=== PATIENT | male | born 1960 | race Caucasian/White ===

== ENCOUNTER 2023-07-08 05:35 | Emergency (ER) | payer MEDICARE, SELFPAY ==
[2023-07-08] VITALS (32 sets, daily range): BP systolic 123–192; BP diastolic 51–79; PULSE 70–92; RESP 4–39; TEMP 37.3–39.4; O2SAT 99–100
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
[2023-07-08] MEDS: ACETAMINOPHEN 500 MG TABLET 1000 MG PO (06:15)
[2023-07-08] MEDS: 0.9 % SODIUM CHLORIDE 1,000 ML 999 ML IV (06:16)
[2023-07-08 06:19] LABS: Hematocrit 30.4 % (42.0-54.0); Hemoglobin 9.6 g/dL (14.0-18.0); Mean Corpuscular HGB Conc 31.6 g/dL (29.9-35.2); Mean Corpuscular Hemoglobin 31.6 pg (25.9-34.0); Mean Platelet Volume 11.9 fL (9.5-13.5); Platelet Count 184 10^3/uL (150-450); Red Blood Count 3.04 10^6/uL (4.70-6.10); Red Cell Distribution Width 13.7 % (11.0-15.0); White Blood Count 20.8 10^3/uL (4.0-11.0)
[2023-07-08 06:29] LABS: Lactate/Lactic Acid 2.1 mmol/L (0.4-2.0)
[2023-07-08 06:33] LABS: Troponin I High Sensitivity 45.8 pg/mL (4.0-76.1)
[2023-07-08 06:42] LABS: Chloride 96 mmol/L (98-107); Sodium 132 mmol/L (136-145)
[2023-07-08 06:43] LABS: Alanine Aminotransferase 14 U/L (16-63); Alkaline Phosphatase 163 U/L (46-116); Anion Gap 18.5; Aspartate Amino Transferase 12 U/L (15-37); BUN Creatinine Ratio 13.7; Bilirubin Total 1.6 mg/dL (0.2-1.0); Calcium 8.5 mg/dL (8.5-10.1); Carbon Dioxide 20.4 mmol/L (21.0-32.0); Estimated GFR (African America 19 (>=60); Estimated GFR (Non-African Ame 16 (>=60); Glucose 192 mg/dL (74-106); Total Protein 7.3 g/dL (6.4-8.2)
[2023-07-08 06:44] LABS: Albumin Globulin Ratio 0.6; Albumin Level 2.7 g/dL (3.4-5.0); Globulin 4.6 g/dL; Potassium 2.9 mmol/L (3.5-5.1)
[2023-07-08 06:47] LABS: Influenza Virus A Antigen Negative; Influenza Virus B Antigen Negative; Internal Control Within Normal Limits; SARS-CoV-2 Ag NEGATIVE (NEGATIVE)
--- NOTE | 2023-07-08 06:47 | XR_ITS ---
[place] [id number] Patient Name: LEA RUSSO MRN: [id number] date: 1960 Sex: M Assigned Patient Location: ER Current Patient Location: ER Accession/Order Number: [id number] Exam Date: 07/08/2023 06:50 Report Date: 07/08/2023 07:10 At the request of: ERNESTO GARCIA Procedure: XR chest 1V EXAMINATION: XR chest 1V HISTORY: shortness of breath/chest pain COMPARISON: XR chest 03/25/2014 FINDINGS: LUNGS: No infiltrate, pneumothorax, or pleural effusion. MEDIASTINUM: No abnormal widening. BOWEL GAS PATTERN: Non-obstructed. FREE AIR: None. CALCIFICATIONS: None significant. BONES: No fracture or visible bone lesion. OTHER: Negative. XR/XR chest 1V IMPRESSION: 1. No acute cardiopulmonary process. Electronically authenticated by: JYOTI ELIZALDE Date: 07/08/2023 07:10
[2023-07-08 06:51] LABS: Lymphocytes Absolute Manual 0.62 10^3/uL (1.20-3.80); Monocytes Absolute Manual 1.24 10^3/uL (0.30-0.80); Segmented Neut Absolute Manual 17.68 10^3/uL (1.4-6.5)
[2023-07-08 06:55] LABS: PROCALCITONIN 2.97 ng/mL (0.00-0.50)
[2023-07-08 07:08] LABS: Bilirubin Direct 0.6 mg/dL (0.0-0.2)
[2023-07-08] MEDS: VANCOMYCIN HCL 1,500 MG in 0.9 % SODIUM CHLORIDE 500 ML 250 MG IV (07:23)
[2023-07-08] MEDS: POTASSIUM CHLORIDE 10 MEQ ER TABLET 40 MEQ PO (07:23)
[2023-07-08] MEDS: ERTAPENEM SODIUM 1 GM in 0.9 % SODIUM CHLORIDE 50 ML IV (07:41)
[2023-07-08] MEDS: POTASSIUM CHLORIDE IN 0.9%NACL 1,000 ML 200 MEQ IV (08:56)
[2023-07-08 09:11] LABS: Lactate/Lactic Acid 0.9 mmol/L (0.4-2.0)
[2023-07-08 19:28] LABS: Enterococcus faecalis NOT DETECTED (NOT DETECTE); Enterococcus faecium NOT DETECTED (NOT DETECTE); Listeria monocytogenes NOT DETECTED (NOT DETECTE); Staphylococcus epidermidis NOT DETECTED (NOT DETECTE); Staphylococcus lugdunensis NOT DETECTED (NOT DETECTE); Staphylococcus spp. NOT DETECTED (NOT DETECTE); Streptococcus agalactiae NOT DETECTED (NOT DETECTE); Streptococcus pneumoniae NOT DETECTED (NOT DETECTE); Streptococcus spp. NOT DETECTED (NOT DETECTE)
[2023-07-08 19:29] LABS: A. calcoaceticus-baumannii Cpx NOT DETECTED (NOT DETECTE); Bacteroides fragilis NOT DETECTED (NOT DETECTE); Candida albicans NOT DETECTED (NOT DETECTE); Candida auris NOT DETECTED (NOT DETECTE); Candida glabrata NOT DETECTED (NOT DETECTE); Candida krusei NOT DETECTED (NOT DETECTE); Candida parapsilosis NOT DETECTED (NOT DETECTE); Candida tropicalis NOT DETECTED (NOT DETECTE); Cryptococcus neoformans/gattii NOT DETECTED (NOT DETECTE); Enterobacter cloacae complex NOT DETECTED (NOT DETECTE); Enterobacterales NOT DETECTED (NOT DETECTE); Haemophilus influenzae NOT DETECTED (NOT DETECTE); Klebsiella aerogenes NOT DETECTED (NOT DETECTE); Klebsiella pneumoniae group NOT DETECTED (NOT DETECTE); Neisseria meningitidis NOT DETECTED (NOT DETECTE); Proteus spp. NOT DETECTED (NOT DETECTE); Pseudomonas aeruginosa NOT DETECTED (NOT DETECTE); Salmonella spp. NOT DETECTED (NOT DETECTE); Serratia marcescens NOT DETECTED (NOT DETECTE); Stenotrophomonas maltophilia NOT DETECTED (NOT DETECTE); Streptococcus pyogenes NOT DETECTED (NOT DETECTE)
[2023-07-09 11:27] LABS: Source BLOOD
== END 2023-07-08 10:28 | disposition short-term general hospital (02) ==
PROVIDERS: Emergency Provider Emergency Medicine; PCP Family Medicine
DX: A41.9 Sepsis, unspecified organism (principal); R65.20 Severe sepsis without septic shock; N17.9 Acute kidney failure, unspecified; L76.82 Other postprocedural complications of skin and subcutaneous tissue; L03.116 Cellulitis of left lower limb; N18.9 Chronic kidney disease, unspecified; R07.9 Chest pain, unspecified; I48.91 Unspecified atrial fibrillation; Z79.899 Other long term (current) drug therapy; Z79.01 Long term (current) use of anticoagulants; R50.9 Fever, unspecified; Z20.822 Contact with and (suspected) exposure to COVID-19
CPT/HCPCS: 36415; 71045; 80048; 80053; 82248; 83605; 83880; 84145; 84484; 85007; 85027; 87040; 87150; 87186; 87804; 87811; 93005; 96365; 96366; 96368; 96375; 99285; J1335; J3370

== ENCOUNTER 2023-12-27 13:01 | Outpatient (REF) | payer MEDICARE, SELFPAY ==
[2023-12-27 14:34] LABS: Hemoglobin 7.2 g/dL (14.0-18.0)
== END 2023-12-27 13:02 | disposition home or self-care (01) ==
LOC: LAB 13:01
PROVIDERS: PCP Family Medicine; Visit Provider Internal Medicine
DX: D64.9 Anemia, unspecified (principal)
CPT/HCPCS: 36415; 85018

== ENCOUNTER 2024-06-01 12:51 | Outpatient (REF) | payer MEDICARE, SELFPAY ==
[2024-06-01 13:20] LABS: Potassium 6.5 mmol/L (3.5-5.1)
== END 2024-06-01 12:52 | disposition home or self-care (01) ==
LOC: LAB 12:51
PROVIDERS: PCP Family Medicine; Visit Provider Internal Medicine Nephrology
DX: E87.5 Hyperkalemia (principal)
CPT/HCPCS: 36415; 84132

== ENCOUNTER 2024-06-29 12:39 | Outpatient (REF) | payer MEDICARE, MEDICAID, SELFPAY ==
[2024-06-29 13:08] LABS: Potassium 5.2 mmol/L (3.5-5.1)
== END 2024-06-29 12:40 | disposition home or self-care (01) ==
LOC: LAB 12:39
PROVIDERS: PCP Family Medicine; Visit Provider Internal Medicine Nephrology
DX: E87.5 Hyperkalemia (principal)
CPT/HCPCS: 36415; 84132

== ENCOUNTER 2024-10-09 12:50 | Outpatient (REF) | payer MEDICARE, MEDICAID, SELFPAY | END 2024-10-09 12:51 | disposition home or self-care (01) | LOC: LAB 12:50 | PROVIDERS: PCP Family Medicine; Visit Provider Internal Medicine Nephrology | DX: D64.9 Anemia, unspecified (principal) | CPT/HCPCS: 36415; 85018 ==